=== PATIENT | female | born 1970 | race Caucasian/White ===

== ENCOUNTER 2021-08-06 15:43 | Emergency (ER) | payer BC ==
--- OUTSIDE RECORDS SUMMARY | 2021-08-06 15:46 | XMS REPORT | Continuity of Care Document ---
:1970 Author Organization [facility] Address [address] [place] [address] [address] [place] [address] Care Team Providers Name Role Phone ROCIO Attending Clinician Unavailable Rocio DAVIS Attending Clinician DR MARIA ANTONIA Attending Clinician Unavailable DR MARIA ANTONIA Admitting Clinician Unavailable Payers Payer Name Policy Type Policy Number Effective Date Expiration Date Kandice woodruff [facility] [id number] 2017 00:00:00 SELECT Problems This patient has no known problems. Allergies, Adverse Reactions, Alerts Allergy Allergy Status Severity Reaction(s) Onset Inactive Treating Comm ents Source Name Type Date Date Clinician NO KNOWN Drug Active Univers ALLERGIE Class ity of S [facility] Social History Social Habit Start Date Stop Date Quantity Comments Source Sex Assigned At Universit y of [facility] Exposure to Not sure [facility] SARS-CoV-2 [facility] (event[facility] Tobacco use and 2020-10-15 2020-10-15 Never used Universit y of exposure 00:00:00 00:00:00 [facility] Alcohol intake 2020-10-15 2020-10-15 Current drinker Unive rsity of 00:00:00 00:00:00 of alcohol [place] [facility] (finding) [facility] History SDOH 2020-10-11 2020-10-11 3 University o f Alcohol Frequency 00:00:00 00:00:00 [place] [facility] History SDSC 2020-10-11 2020-10-11 1 University o f Alcohol Std 00:00:00 00:00:00 [facility] Drinks [facility] History SDSC 2020-10-11 2020-10-11 99 University o f Alcohol Binge 00:00:00 00:00:00 [facility] Smoking Status Start Date Stop Date Source Never smoker [facility] Medications Ordered Filled Start Stop Current Ordering Indication Dosage Frequency Signature Comments Components Source Medication Medication Date Date Medication? Clinician (SIG) Name Name LORATADINE Yes Take by Uni vers (CLARITIN 2-08 mouth. ity of ORAL) 20:27: [place] [address] Medical Branch LORATADINE Yes Take by Uni vers (CLARITIN 2-08 mouth. ity of ORAL) 20:27: [place] [address] Medical Branch amLODIPine Yes Univers 2.5 mg 2-06 ity of tablet 00:00: [place] [address] Medical Branch amLODIPine Yes Univers 2.5 mg 2-06 ity of tablet 00:00: [place] [address] Medical Branch pantoprazol Yes 40mg Take 40 mg Univers e 40 mg EC 1-25 by mouth ity o f tablet 00:00: daily. [place] [facility] pantoprazol Yes 40mg Take 40 mg Univers e 40 mg EC 1-25 by mouth ity o f tablet 00:00: daily. [place] [address] Medical Branch meloxicam Yes 15mg Take 15 mg Un stefanie 15 mg 1-08 by mouth ity of tablet 00:00: daily. Medical Branch meloxicam Yes 15mg Take 15 mg Un stefanie 15 mg 1-08 by mouth ity of tablet 00:00: daily. [place] [facility] busPIRone 5 Yes 5mg Take 5 mg U nivers mg tablet 1-04 by mouth 2 ity of 00:00: (two) [place] 00 times Medical daily. Branch busPIRone 5 Yes 5mg Take 5 mg U nivers mg tablet 1-04 by mouth 2 ity of 00:00: (two) [place] times Medical daily. Branch simvastatin 2019-09 Yes 40mg Take 40 mg Univers 40 mg 2-08 by mouth ity of tablet 00:00: every [place] 00 evening. Medical Branch simvastatin 2019-09 Yes 40mg Take 40 mg Univers 40 mg 2-08 by mouth ity of tablet 00:00: every [place] 00 evening. Medical Branch lisinopriL 2019-09 Yes 20mg Take 20 mg U nivers 20 mg 1-30 by mouth ity of tablet 00:00: daily. [place] [address] Medical Branch lisinopriL 2019-09 Yes 20mg Take 20 mg U nivers 20 mg 1-30 by mouth ity of tablet 00:00: daily. [place] [facility] celecoxib 0 Yes TAKE ONE Univ ers 200 mg 9-26 CAPSULE BY ity of capsule 00:00: MOUTH EVERY DAY Medical Branch celecoxib 0 Yes TAKE ONE Univ ers 200 mg 9-26 CAPSULE BY ity of capsule 00:00: MOUTH EVERY DAY Medical Branch diclofenac Yes TAKE 1 Unive rs 75 mg EC 4-30 TABLET BY ity of tablet 00:00: MOUTH TWICE A Medical DAY WITH A Branch MEAL diclofenac Yes TAKE 1 Unive rs 75 mg EC 4-30 TABLET BY ity of tablet 00:00: MOUTH TWICE A Medical DAY WITH A Branch MEAL montelukast 2016-09 Yes Univer s 10 mg 0-18 ity of tablet 00:00: [place] [facility] montelukast 2016-09 Yes Univer s 10 mg 0-18 ity of tablet 00:00: [facility] Immunizations Ordered Filled Immunization Date Status Comments Sourc e Immunization Name Name SARS-COV-2 COVID-19 2020-10-10 Completed Unive rsity of MODERNA VACCINE 00:00:00 [facility] SARS-COV-2 COVID-19 2020-10-10 Completed Unive rsity of MODERNA VACCINE 00:00:00 [facility] Vital Signs Vital Name Observation Time Observation Value Comments Source Systolic blood 2020-10-15 21:16:00 144 mm[Hg] Univer sity of pressure [facility] Diastolic blood 2020-10-15 21:16:00 92 mm[Hg] Unive rsity of pressure [facility] Heart rate 2020-10-15 21:13:00 68 /min [facility] Body temperature 2020-10-15 21:13:00 36.72 Jojo Univ ersity [facility] Respiratory rate 2020-10-15 21:13:00 18 /min Univ ersity [facility] Body height 2020-10-15 21:13:00 177.8 cm [facility] Body weight 2020-10-15 21:13:00 110.451 kg [facility] BMI 2020-10-15 21:13:00 34.94 kg/m2 [facility] Procedures Procedure Date / Time Performed Performing Clinician Sourc e POCT TEST 2020-10-15 00:00:00 Tiffanie Ramachandrani ty of [facility] Encounters Start End Encounter Admission Attending Care Care Encounter Source Date/Time Date/Time Type Type Clinicians Facility Department ID 2021-10-11 2021-10-[address] [facility] [id number] Univers 15:30[facility] 2020-11-07 2020-11-[address] [facility] [id number] Univers 12:25:00 12:25:00 [facility] 2020-10-15 2020-10-15 Office Tiffanie Ramachandran [facility] [id number] Univers 14:59:28 15:36:47 Visit [place] [id number] i ty [facility] [id number] [facility] [id number] Mt dical [address] 2020-10-15 2020-10-[address] [facility] [id number] Univers 15:00:00 [facility] 2020-10-11 2020-10-[address] [facility] [id number] Univers 14:00:00 14:00:00 [id number] [facility] 2020-10-11 2020-10-[address] [facility] [id number] Univers 14:00:00 [facility] 2020-10-10 2020-10-[address] [facility] [id number] Univers 12:20:00 12:20:00 [facility] 2019-07-18 2019-07-18 Outpatient Noah EM [facility] [id number] [place] 04:23:00 06:40:00 [facility] Results Test Description Test Time Test Comments Results Result Comments Source POCT TEST 2020-10-15 21:15:00 Test Item Value Reference Range Interpretation Comme nts POCT PREG (test code = 1605) Negative On board controls acceptable with C Line (test code = 3574) Yes POCT PREG LOT # (test code = 3575) POCT PREG TEST DATE (test code = 3576) [id number] 21:15:00 Test Item Value Reference Range Interpretation Comments POCT PREG (test code = 1605) Negative On board controls acceptable with C Yes Line (test code = 3574) POCT PREG LOT # (test code = 3575) POCT PREG TEST DATE (test code = 3576) [facility] UR[facility] MONOCLONALFB2019-07-18 05:22:00 Test Item Value Reference Range Interpretation Comments PREG UR (test code = PGU) Negative NEGATIVE
[2021-08-06] MEDS ORDERED: LIDOCAINE 1% MPF 5 ML VIAL ONE (16:20)
[2021-08-06] MEDS ORDERED: TETANUS & DIPHTHERIA TOX,ADULT 0.5 ML VIAL ONE (16:20)
[2021-08-06] MEDS ORDERED: HYDROCODONE/APAP 5/325 MG TAB ONE (17:00)
[2021-08-06] MEDS ORDERED: NA CHLORIDE 0.9% 100 ML ONE (17:27)
[2021-08-06] MEDS ORDERED: AMPICILLIN/SULBACT 1.5GM VIAL ONE (17:27)
[2021-08-06] MEDS ORDERED: SMZ./TMP. 800/160 MG TABLET ONE (17:27)
--- NOTE | 2021-08-06 17:36 | ER ---
Nurse's Notes [facility] Name: Kayla Dobson Age: 51 yrs Sex: Female : 1970 Arrival Date: 08/06/2021 Time: 15:46 Bed 16 Private MD: Diagnosis: Paronychia right middle finger Presentation: 08/06 16:04 Chief complaint: Patient states: Right middle finger appears to be red and swollen. Pt vg1 states noticed it yesterday and today stated squeezed finger and 'some yellow discharge come out'. Coronavirus screen:. Ebola Screen: Patient negative for fever greater than or equal to 101.5 degrees Fahrenheit, and additional compatible Ebola Virus Disease symptoms. Initial Sepsis Screen: Does the patient meet any 2 criteria? No. Patient's initial sepsis screen is negative. Does the patient have a suspected source of infection? No. Patient's initial sepsis screen is negative. Risk Assessment: Do you want to hurt yourself or someone else? Patient reports no desire to harm self or others. Onset of symptoms was August 05, 2021. 16:04 Method Of Arrival: Ambulatory vg1 16:04 Acuity: ALKA 4 vg1 Triage Assessment: 16:06 General: Appears in no apparent distress. comfortable, Behavior is calm, cooperative. vg1 Pain: Complains of pain in right middle fingernail. Historical: - Allergies: 16:06 No Known Allergies; vg1 - Home Meds: 16:06 valsartan oral [Active]; Simvastatin Oral [Active]; Buspirone Oral [Active]; meloxicam vg1 oral [Active]; pantoprazole oral [Active]; montelukast oral [Active]; Fexofenadine HCl Oral [Active]; - PMHx: 16:06 Hypertensive disorder; Hypercholesterolemia; Arthritis; GERD; vg1 - PSHx: 16:06 None; vg1 - Immunization history:: Client reports receiving the 2nd dose of the Covid vaccine. - Social history:: Smoking status: Patient denies any tobacco usage or history of. Screenin:58 Abuse screen: Denies threats or abuse. Nutritional screening: No deficits noted. jh6 Tuberculosis screening: No symptoms or risk factors identified. Fall Risk None identified. Assessment: 16:56 General: Appears uncomfortable, well groomed, well developed, Behavior is calm, jh6 cooperative. Pain: Complains of pain in dorsal aspect of distal phalanx of right middle finger and dorsal aspect of middle phalanx of right middle finger Pain currently is 8 out of 10 on a pain scale. Derm: Wound noted right hand Wound is redness and swelling noted. Vital Signs: 16:04 BP 123 / 78; Pulse 94; Resp 16; Temp 98.1; Pulse Ox 100% ; Weight 120.2 kg; Height 5 vg1 ft. 10 in. (177.80 cm); Pain 5/10; 17:50 BP 123 / 74; Pulse 76; Resp 18; Pulse Ox 100% ; Pain 6/10; jh6 18:48 BP 122 / 76; Pulse 82; Resp 17; Pulse Ox 100% ; Pain 4/10; jh6 16:04 Body Mass Index 38.02 (120.20 kg, 177.80 cm) vg1 ED Course: 15:46 Patient arrived in ED. as 16:06 Triage completed. vg1 16:06 Arm band placed on. vg1 16:12 Jarrell Rogers NP is PHCP. pm1 16:12 Vicente Culp MD is Attending Physician. pm1 16:18 Ruba Liu RN is Primary Nurse. jh6 16:57 Irrigation of incision. Wound care: to cellulitis. 6 16:58 Call light in reach. Side rails up X 1. jh6 16:58 Assist provider with I \T\ D: of an abscess on right rt hand 3rd digit. jh6 17:35 Nabor Pal MD is Referral Physician. pm1 18:45 IV discontinued, intact, bleeding controlled, No redness/swelling at site. Pressure jh6 dressing applied. 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 Exp: jh6 09/18/2021. Lot #: [id number]. } Route: IM; Site: left deltoid; 16:24 Drug: Lidocaine (1 %) 5 ml Volume: 5 ml; Route: Infiltration; 6 17:34 Follow up: Response: No adverse reaction jh6 17:04 Drug: [place] (HYDROcodone-acetaminophen) 5 mg-325 mg 1 tabs Route: PO; jh6 17:34 Follow up: Response: No adverse reaction jh6 17:34 Drug: Unasyn (ampicillin-sulbactam) 1.5 grams Route: IVPB; Infused Over: 30 mins; Site: [facility] left antecubital; 18:47 Follow up: IV Status: Completed infusion [facility] 17:34 Drug: Bactrim (trimethoprim-sulfamethoxazole) (160 mg-800 mg (DS) 1 tablet Route: PO; 6 Outcome: 17:35 Discharge ordered by MD. pm1 18:14 Condition: good 18:14 Instructed on discharge instructions, follow up and referral plans. medication usage. 18:50 Discharged to home ambulatory. [facility] 19:03 Patient left the ED. [facility] Signatures: Chloe Medina Shelby, RN RN ss Jarrell Rogers NP SAMPLE PREPARATION SUPERVISOR pm1 Kathy Acosta, RN RN 1 Ruba Liu RN RN 6
--- NOTE | 2021-08-06 17:36 | EDPHYS ---
Physician Documentation [facility] Name: Kayla Dobson Age: 51 yrs Sex: Female : 1970 Arrival Date: 08/06/2021 Time: 15:46 Bed 16 Private MD: ED Physician Vicente Cupl HPI: 08/06 16:24 This 51 yrs old Female presents to ER via Ambulatory with complaints of finger pm1 infection. 16:24 The patient or guardian reports pain, swelling. The complaints affect the right middle pm1 finger. Context: resulted from an unknown cause. Onset: The symptoms/episode began/occurred yesterday. Modifying factors: The symptoms are alleviated by expressing drainage from wound, the symptoms are aggravated by nothing. Associated signs and symptoms: Pertinent negatives:. Severity of symptoms: in the emergency department the symptoms are actually worse. The patient has not experienced similar symptoms in the past. The patient has not recently seen a physician. Historical: - Allergies: 16:06 No Known Allergies; vg1 - Home Meds: 16:06 valsartan oral [Active]; Simvastatin Oral [Active]; Buspirone Oral [Active]; meloxicam vg1 oral [Active]; pantoprazole oral [Active]; montelukast oral [Active]; Fexofenadine HCl Oral [Active]; - PMHx: 16:06 Hypertensive disorder; Hypercholesterolemia; Arthritis; GERD; vg1 - PSHx: 16:06 None; vg1 - Immunization history:: Client reports receiving the 2nd dose of the Covid vaccine. - Social history:: Smoking status: Patient denies any tobacco usage or history of. Vital Signs: 16:04 BP 123 / 78; Pulse 94; Resp 16; Temp 98.1; Pulse Ox 100% ; Weight 120.2 kg; Height 5 vg1 ft. 10 in. (177.80 cm); Pain 5/10; 17:50 BP 123 / 74; Pulse 76; Resp 18; Pulse Ox 100% ; Pain 6/10; jh6 18:48 BP 122 / 76; Pulse 82; Resp 17; Pulse Ox 100% ; Pain 4/10; jh6 16:04 Body Mass Index 38.02 (120.20 kg, 177.80 cm) vg1 MDM: 16:12 Patient medically screened. pm1 16:12 Data reviewed: vital signs. Data interpreted: Pulse oximetry: on room air is 100 %. pm1 Interpretation: normal. 17:28 Counseling: I had a detailed discussion with the patient and/or guardian regarding: the pm1 historical points, exam findings, and any diagnostic results supporting the discharge/admit diagnosis, the need for outpatient follow up, a hand specialist, to return to the emergency department if symptoms worsen or persist or if there are any questions or concerns that arise at home. 17:28 ED course: Negative for Kanavel's signs. No drainage or discharge present from I\T\D of pm1 right middle finger paronychia. Patient apparently expressed all contents of the paronychia last night. Patient with mild swelling present to [facility]. FROM intact. Will give the patient IV ABX therapy in the ER and will discharge with PO antibiotics and follow up with hand surgery or return to ER if symptoms worsen . 17:37 ED course: [place] reviewed. 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 Exp: jh6 09/18/2021. Lot #: [id number]. } Route: IM; Site: left deltoid; 16:24 Drug: Lidocaine (1 %) 5 ml Volume: 5 ml; Route: Infiltration; [facility] 17:34 Follow up: Response: No adverse reaction [facility] 17:04 Drug: [place] (HYDROcodone-acetaminophen) 5 mg-325 mg 1 tabs Route: PO; 6 17:34 Follow up: Response: No adverse reaction [facility] 17:34 Drug: Unasyn (ampicillin-sulbactam) 1.5 grams Route: IVPB; Infused Over: 30 mins; Site: [facility] left antecubital; 18:47 Follow up: IV Status: Completed infusion 6 17:34 Drug: Bactrim (trimethoprim-sulfamethoxazole) (160 mg-800 mg (DS) 1 tablet Route: PO; 6 Disposition: 08/07 07:01 Co-signature as Attending Physician, Vicente Culp MD I agree with the assessment and rn plan of care. Attestation: The patient's history, exam findings, diagnostics, and a summary of any interventions or procedures was reviewed in detail with Jarrell Rogers NP. Disposition Summary: 08/06/21 17:35 Discharge Ordered Location: Home pm1 Problem: new pm1 Symptoms: have improved pm1 Condition: Stable pm1 Diagnosis - Paronychia right middle finger pm1 Followup: pm1 - With: Emergency Department - When: As needed - Reason: Worsening of condition Followup: pm1 - With: Nabor Pal MD - When: 2 - 3 days - Reason: Recheck today's complaints, Continuance of care, Re-evaluation by your physician Discharge Instructions: - Discharge Summary Sheet pm1 - Paronychia pm1 Forms: - Medication Reconciliation Form pm1 - Thank You Letter pm1 - Antibiotic Education pm1 - Prescription Opioid Use pm1 Prescriptions: - Augmentin 875-125 mg Oral Tablet - take 1 tablet by ORAL route every 12 hours for 10 days; 20 tablet; Refills: 0, pm1 Product Selection Permitted - Bactrim DS 800-160 mg Oral Tablet - take 1 tablet by ORAL route every 12 hours for 10 days; 20 tablet; Refills: 0, pm1 Product Selection Permitted - acetaminophen-codeine 300-15 mg Oral tablet - take 2 tablet by ORAL route every 4 hours As needed as needed; 20 tablet; pm1 Refills: 0, Product Selection Permitted Addendum: 08/08/2021 15:29 Addendum: ROS: Constitutional: Negative for fever, chills and weight loss. p m1 Cardiovascular: Negative for chest pain, palpitations, and edema. Respiratory: Negative for shortness of breath, cough, wheezing, and pleuritic chest pain. Neuro: Negative for headache, weakness, numbness, tingling, and seizure. Skin: Positive for redness to dorsal aspect of distal right middle finger, drainage from lateral aspect of right middle finger cuticle when she expressed swelling last night. MS/extremity: Positive for swelling of right middle finger, Negative for decreased range of motion, deformity, injury. All other systems are negative. 15:52 Addendum: Exam: Constitutional: Well developed, well nourished. Alert, awake, and p m1 cooperative with no acute distress. Head/face: Normocephalic, atraumatic. Cardiovascular: Regular rate and rhythm. No pulse deficits. Brisk capillary refill to each finger on right hand. Respiratory: No increased work of breathing, no retractions or nasal flaring. Skin: Warm and dry with excellent turgor. Mild swelling present to dorsal aspect of right middle finger, cuticle area. Mild swelling present to dorsal aspect of PIP right middle finger. No fluctuance or pointing present to swelling at distal aspect of right middle finger. Musculoskeletal/extremity: Extremities: Full range of motion intact to right hand and wrist and all fingers. Neuro: Exam negative for acute changes. Orientation: Is normal. Mentation: Is normal. Motor: Is normal, moves all 4 extremities. 16:00 Addendum: Incision and drainage: Right middle finger medial aspect of distal portion, p m1 cuticle area. Anesthesia: Digital block administered with 2 mL of 1% lidocaine. Wound prep: Extensive cleaning with Betadine and Hibiclens by me. #11 blade used to probe cuticle area, no drainage or purulence expressed, only blood present. Patient tolerated procedure well. Signatures: Vicente Culp MD MD rn Marinas, Patrick, NP [employer]LECT[employer]OSPECTING pm1 Kathy Acosta, RN RN vg1 Ruba Liu RN RN jh6
[2021-08-06 19:14] VITALS: TEMP 98.1; O2SAT 100
[2021-08-06 19:17] VITALS: BP 122/76
== END 2021-08-06 19:03 | disposition home or self-care (01) ==
LOC: ER 15:43
DX: L03.011 Cellulitis of right finger (principal); I10 Essential (primary) hypertension; Z23 Encounter for immunization
CPT/HCPCS: 96365; 90471; 90714; 99284; J0295

== ENCOUNTER 2024-10-14 10:11 | Emergency (ER) | payer BC ==
[2024-10-14] MEDS ORDERED: ASPIRIN 81 MG CHEWABLE TABLET ONE (10:13)
--- NOTE | 2024-10-14 10:54 | RAD REPORT ---
Procedure: Chest Single View HISTORY: Chest pain COMPARISON: none FINDINGS: The lungs appear clear of acute infiltrate. No significant pleural effusion noted. The heart is normal size. IMPRESSION: No acute abnormality is displayed.
[2024-10-14 10:57] LABS: Absolute Eosinophils 0.2 K/uL (0-0.5); Absolute Lymphocytes (CBC) 1.8 K/uL (0.7-4.9); Absolute Monocytes 0.5 K/uL (0.1-1.3); Absolute Neutrophil 3.6 K/uL (1.8-8.0); Basophils % 0.5 % (0-1.3); Eosinophils % 2.9 % (0-4.4); Hematocrit 40.6 % (36.0-45.0); Lymphocytes % 29.8 % (15.3-44.8); MCH 30.1 pg (27.0-35.0); MCHC 34.4 g/dL (32.0-36.0); MCV 87.4 fL (80-100); MPV 7.5 fL (7.6-11.3); Monocytes % 7.8 % (3.3-12.3); Platelets 310 thou/uL (152-406); RBC Red Blood Cell Count 4.65 M/uL (3.86-4.86); Red Cell Distribution Width 13.8 % (12.1-15.2)
[2024-10-14 11:08] LABS: Protime INR 1.05
[2024-10-14 11:15] LABS: ALT/SGPT 54 U/L (13-56); AST/SGOT 24 U/L (15-37); Albumin 3.5 g/dL (3.4-5.0); Albumin/Globulin Ratio 0.9 (1.1-1.8); Alkaline Phosphatase 78 U/L (45-117); Anion Gap 8.8 mEq/L (5.0-15.0); BUN Blood Urea Nitrogen 14 mg/dL (7-18); Bicarbonate 28 mEq/L (21-32); Bilirubin Total 0.4 mg/dL (0.2-1.0); Globulin 3.9 g/dL (2.3-3.5); Glomerular Filtration Rate 92 ml/min (=/>90); Glucose Level 133 mg/dL (74-106); Magnesium 2.1 mg/dL (1.6-2.4); Potassium 3.8 mEq/L (3.5-5.1); Protein, Total 7.4 g/dL (6.4-8.2); Sodium Level 140 mEq/L (136-145)
[2024-10-14 11:20] LABS: Bilirubin Direct < 0.2 mg/dL (0-0.2); Bilirubin Indirect, Calculated 0.2 mg/dL (0.2-0.8); Troponin High Sensitivity < 3.0 pg/mL (<58.9)
--- NOTE | 2024-10-14 12:17 | EDPHYS ---
Physician Documentation [facility] Name: Kayla Dobson Age: 54 yrs Sex: Female : 1970 Arrival Date: 10/14/2024 Time: 10:11 Bed 16 Private MD: ED Physician Jaguar Parkinson HPI: 10/14 10:21 This 54 yrs old Female presents to ER via Unassigned with complaints of Chest Pain. ms3 10:21 54-year-old female with past medical history of hypertension, seasonal allergies, ms3 hyperlipidemia, prediabetes presents to the emergency department for left chest pain that is been ongoing intermittently for 1 month. Patient states the pain has become persistent since the weekend. Patient rates her discomfort a 4/10. She denies nausea, vomiting, shortness of breath, sweating, cough. Historical: - Allergies: 10:26 No Known Allergies; iw - PMHx: 10:26 Arthritis; GERD; Hypercholesterolemia; Hypertensive disorder; iw - PSHx: 10:26 hip; iw - Immunization history:: Adult Immunizations up to date. - Infectious Disease History:: Denies. - Social history:: Smoking status: Patient denies any tobacco usage or history of. ROS: 10:21 Constitutional: Negative for fever, and chills. ms3 10:21 Respiratory: Negative for shortness of breath, cough, wheezing, and pleuritic chest pain, Abdomen/GI: Negative for abdominal pain, nausea, vomiting, diarrhea, and constipation, MS/Extremity: Negative for injury and deformity, Skin: Negative for injury, rash, and discoloration, 10:21 Cardiovascular: Positive for chest pain, Exam: 10:21 Constitutional: This is a well developed, well nourished patient who is awake, alert, ms3 and in no acute distress. Cardiovascular: Regular rate and rhythm with a normal S1 and S2. No gallops, murmurs, or rubs. Normal PMI, no JVD. No pulse deficits. Respiratory: Lungs have equal breath sounds bilaterally, clear to auscultation and percussion. No rales, rhonchi or wheezes noted. No increased work of breathing, no retractions or nasal flaring. Abdomen/GI: Soft, non-tender, with normal bowel sounds. No distension or tympany. No guarding or rebound. No evidence of tenderness throughout. Skin: Warm, dry with normal turgor. Normal color with no rashes, no lesions, and no evidence of cellulitis. 10:35 ECG was reviewed by the Attending Physician. ms3 Vital Signs: 10:27 BP 135 / 95; Pulse 72; Resp 16; Temp 97.4; Pulse Ox 98% on R/A; Weight 115.67 kg; iw Height 5 ft. 10 in. ; 11:54 BP 110 / 64; Pulse 77; Resp 18; Pulse Ox 100% on R/A; mb9 12:23 BP 131 / 82; Pulse 74; Resp 16; Pulse Ox 100% on R/A; mb9 10:27 Body Mass Index 36.59 (115.67 kg, 177.8 cm) iw MDM: 10:21 Differential diagnosis: abnormal EKG, acute myocardial infarction, coronary artery ms3 disease chest wall pain. The patient was given aspirin in the Emergency Department. 10:26 Medical Screening Exam initiated ms3 15:47 HEART Score: History: Slightly Suspicious (0), ECG: Normal (0), Age: > 45 and < 65 ms3 years (1), Risk Factors: 1 or 2 risk factors (1), [Hypercholesterolemia] [Hypertension] Troponin: < or = 1 x Normal Limit (0), Total Score = 2. Data reviewed: vital signs, nurses notes, lab test result(s), EKG, radiologic studies, and as a result, I will discharge patient. I considered the following discharge prescriptions or medication management in the emergency department Medications were administered in the Emergency Department. See MAR. Independent interpretation of the following test(s) in the Emergency Department EKG: See my EKG interpretation above. Counseling: I had a detailed discussion with the patient and/or guardian regarding the historical points, exam findings, and any diagnostic results supporting the discharge/admit diagnosis, lab results, radiology results, the need for outpatient follow up, to return to the emergency department if symptoms worsen or persist or if there are any questions or concerns that arise at home. Special discussion: Based on the patient's history, exam, and Dx evaluation, there is no indication for emergent intervention or inpatient Tx. It is understood by the patient/guardian that if the Sx's persist or worsen they need to return immediately for re-evaluation. ED course: Discussed EKG, labs, chest x-ray with patient. Patient's troponin negative. Heart score 2. Patient to follow-up with Dr. Le in 1 to 2 days. Patient understands and agrees with plan. All questions were answered. Return precautions discussed include worsening symptoms, or any other concerns. On reevaluation patient symptoms improved, patient is alert and oriented x 4, no apparent distress, nontoxic-appearing, speaking full sentences. 10/14 10:15 Order name: Basic Metabolic Panel; Complete Time: 11:36 ms3 10/14 10:15 Order name: CBC with Diff; Complete Time: 11:03 ms3 10/14 10:15 Order name: LFT's; Complete Time: 11:36 ms3 10/14 10:15 Order name: Magnesium; Complete Time: 11:36 ms3 10/14 10:15 Order name: PT-INR; Complete Time: 11:36 ms3 10/14 10:15 Order name: Troponin HS; Complete Time: 11:36 ms3 10/14 10:15 Order name: XRAY Chest (1 view); Complete Time: 11:03 ms3 10/14 10:15 Order name: Cardiac monitoring; Complete Time: 10:20 ms3 10/14 10:15 Order name: EKG - Nurse/Tech; Complete Time: 10:34 ms3 10/14 10:15 Order name: IV Saline Lock; Complete Time: 10:40 ms3 10/14 10:15 Order name: Labs collected and sent; Complete Time: 10:40 ms3 10/14 10:15 Order name: O2 Per Protocol; Complete Time: 10:20 ms3 10/14 10:15 Order name: O2 Sat Monitoring; Complete Time: 10:20 ms3 EC:35 Rate is 72 beats/min. Rhythm is regular. QRS [place] is Normal. ND interval is normal. QRS ms3 interval is normal. Clinical impression: Normal ECG. Interpreted by me. Reviewed by me. Administered Medications: 10:20 Drug: Aspirin PO Chewable Tablet 324 mg PO once; 81 mg tablets x 4 Route: PO; mb9 12:23 Follow up: Response: No adverse reaction mb9 Disposition Summary: 10/14/24 12:16 Discharge Ordered Notes: Location: Home ms3 Condition: Stable ms3 Diagnosis - Chest pain, unspecified ms3 Followup: ms3 - With: Landry Le MD - When: 1 - 2 days - Reason: Re-evaluation by your physician Discharge Instructions: - Discharge Summary Sheet ms3 - Nonspecific Chest Pain, Adult ms3 Forms: - Medication Reconciliation Form ms3 - Antibiotic Education ms3 - Prescription Opioid Use ms3 - Patient Portal Instructions ms3 - Leadership Thank You Letter ms3 Signatures: Dispatcher [employer] EDMS Nany Vizcarra, RN RN Jaguar Melendez DO DO ms3 Irene Machado RN RN mb9 Corrections: (The following items were deleted from the chart) 10:15 10:15 BASIC METABOLIC PANEL+C.LAB.BRZ ordered. EDMS EDMS 10:15 10:15 CBC+H.LAB.BRZ ordered. EDMS EDMS 10:15 10:15 HEPATIC FUNCTION+C.LAB.BRZ ordered. EDMS EDMS 10:15 10:15 MAGNESIUM+C.LAB.BRZ ordered. EDMS EDMS 10:15 10:15 PROTIME (+INR)+COAG.LAB.BRZ ordered. EDMS EDMS 10:15 10:15 Troponin High Sensitivity+C.LAB.BRZ ordered. EDMS EDMS 10:15 10:15 Chest Single View+RAD.RAD.BRZ ordered. EDMS EDMS
--- NOTE | 2024-10-14 12:17 | ER ---
Nurse's Notes [facility] Name: Kayla Dobson Age: 54 yrs Sex: Female : 1970 Arrival Date: 10/14/2024 Time: 10:11 Bed 16 Private MD: Diagnosis: Chest pain, unspecified Presentation: 10/14 10:25 Chief complaint: Patient states: chest pain for a couple months, worse over the iw weekend. Coronavirus screen: At this time, the client does not indicate any symptoms associated with coronavirus-19. Ebola Screen: No symptoms or risks identified at this time. Initial Sepsis Screen: Does the patient meet any 2 criteria? No. Patient's initial sepsis screen is negative. Does the patient have a suspected source of infection? No. Patient's initial sepsis screen is negative. Risk Assessment: Do you want to hurt yourself or someone else? Patient reports no desire to harm self or others. Onset of symptoms was September 2024. 10:25 Method Of Arrival: Ambulatory iw 10:25 Acuity: ALKA 3 iw Historical: - Allergies: 10:26 No Known Allergies; iw - PMHx: 10:26 Arthritis; GERD; Hypercholesterolemia; Hypertensive disorder; iw - PSHx: 10:26 hip; iw - Immunization history:: Adult Immunizations up to date. - Infectious Disease History:: Denies. - Social history:: Smoking status: Patient denies any tobacco usage or history of. Screenin:33 [facility] ED Fall Risk Assessment (Adult) History of falling in the last 3 months, mb9 including since admission No falls in past 3 months (0 pts) Confusion or Disorientation No (0 pts) Intoxicated or Sedated No (0 pts) Impaired Gait No (0 pts) Mobility Assist Device Used No (0 pt) Altered Elimination No (0 pt) Score/Fall Risk Level 0 - 2 = Low Risk Oriented to surroundings. Abuse screen: Denies threats or abuse. Nutritional screening: No deficits noted. Tuberculosis screening: No symptoms or risk factors identified. Assessment: 10:45 General: Appears in no apparent distress. Behavior is calm, cooperative. Pain: mb9 Complains of pain in chest Pain radiates to left chest Quality of pain is described as aching, Pain began 1 month ago Is intermittent. Neuro: Rodriguez Agitation-Sedation Scale (RASS): 0 - Alert and Calm Level of Consciousness is awake, alert, obeys commands, Oriented to person, place, time, situation, Appropriate for age. Cardiovascular: Heart tones S1 S2 present Patient's skin is warm and dry. Rhythm is regular. Cardiovascular: Reports chest pain. Respiratory: Airway is patent Respiratory effort is even, unlabored, Respiratory pattern is regular, symmetrical, Breath sounds are clear bilaterally. GI: Abdomen is round non-distended, Bowel sounds present X 4 quads. Abd is soft and non tender X 4 quads. : No signs and/or symptoms were reported regarding the genitourinary system. EENT: No signs and/or symptoms were reported regarding the EENT system. Derm: Skin is pink, warm \T\ dry. Musculoskeletal: Range of motion: intact in all extremities. 11:54 Reassessment: No changes from previously documented assessment. Patient and/or family mb9 updated on plan of care and expected duration. Pain level reassessed. Patient is alert, oriented x 3, equal unlabored respirations, skin warm/dry/pink. Vital Signs: 10:27 BP 135 / 95; Pulse 72; Resp 16; Temp 97.4; Pulse Ox 98% on R/A; Weight 115.67 kg; iw Height 5 ft. 10 in. ; 11:54 BP 110 / 64; Pulse 77; Resp 18; Pulse Ox 100% on R/A; mb9 12:23 BP 131 / 82; Pulse 74; Resp 16; Pulse Ox 100% on R/A; mb9 10:27 Body Mass Index 36.59 (115.67 kg, 177.8 cm) iw ED Course: 10:12 Patient arrived in ED. mr 10:14 Jagaur Parkinson DO is Attending Physician. ms3 10:15 Irene Machado, CHRISTIN is Primary Nurse. mb9 10:22 EKG done, by ED staff, reviewed by Jaguar Parkinson DO. mb9 10:26 Triage completed. iw 10:28 Arm band placed on. iw 10:33 Placed in gown. Bed in low position. Call light in reach. Side rails up X 1. Provided mb9 Education on: press call light if needing anything. Client placed on continuous cardiac and pulse oximetry monitoring. NIBP monitoring applied. nuclear monitoring technician on. 10:40 Inserted saline lock: 20 gauge in left forearm, using aseptic technique. Blood mb9 collected. Flushed with 10 mL NS. 10:51 XRAY Chest (1 view) In Process Unspecified. EDMS 12:16 Landry Le MD is Referral Physician. ms3 12:23 No provider procedures requiring assistance completed. IV discontinued, intact, mb9 bleeding controlled, No redness/swelling at site. Pressure dressing applied. Administered Medications: 10:20 Drug: Aspirin PO Chewable Tablet 324 mg PO once; 81 mg tablets x 4 Route: PO; mb9 12:23 Follow up: Response: No adverse reaction mb9 Medication: 10:33 VIS not applicable for this client. mb9 Outcome: 12:16 Discharge ordered by MD. ms3 12:23 Discharged to home ambulatory, mb9 12:23 Condition: stable 12:23 Discharge instructions given to patient, Instructed on discharge instructions, follow up and referral plans. Demonstrated understanding of instructions, follow-up care, 12:23 Patient left the ED. mb9 Signatures: Dispatcher [employer] EDDE Irene Pendleton, Reg Reg mr Nany Vizcarra, RN RN iw Jaguar Parkinson, DO ms3 Irene Machado, RN RN mb9 Corrections: (The following items were deleted from the chart) 10:28 10:25 Acuity: ALKA 2 iw iw
[2024-10-14 14:09] VITALS: TEMP 97.4
[2024-10-14 14:10] VITALS: O2SAT 100
[2024-10-14 14:11] VITALS: BP 131/82
--- NOTE | 2024-10-15 11:45 | EKG ---
Test Date: 2024-10-14 Test Time: 10:20:47 Fashion Marketer: RAMÍREZ MEASUREMENT RESULTS: Intervals: Rate: 72 LA: 162 QRSD: 82 QT: 396 QTc: 433 [place]: P: 54 LA: 162 QRS: 53 T: 57 INTERPRETIVE STATEMENTS: Normal sinus rhythm Normal ECG Compared to ECG 07/14/2019 16:16:04 No significant changes Electronically Signed On 10-15-24 11:44:21 DIRECTOR [employer] by Solitario Mejia
== END 2024-10-14 12:23 | disposition home or self-care (01) ==
LOC: ER 10:11 → SUPCPDRO 10:11 → ER 12:23
DX: R07.9 Chest pain, unspecified (principal); I10 Essential (primary) hypertension
CPT/HCPCS: 36415; 71045; 80048; 80076; 83735; 84484; 85025; 85610; 93005